=== PATIENT | male | born 1995 | race Caucasian/White ===

== ENCOUNTER 2017-05-28 14:35 | Emergency (ER) | payer SELFPAY ==
[2017-05-28 14:40] VITALS: BP 127/58
[2017-05-28] MEDS ORDERED: VALA1000 PO (15:40)
--- NOTE | 2017-05-28 15:40 | PHYS DOC ---
Adult General Chief Complaint Chief Complaint: rash HPI HPI Patient is a 21-year-old male who presents ambulatory to the emergency department with painful rash on his genital area. His has the same rash. It started yesterday. They were wondering if it might be an allergic reaction to a condom. It was a little bit tingly and itchy when it first started but now it is very painful. 's rash is painful as well. The patient has never had a rash like this before. Review of Systems Review of Systems Constitutional: Denies fever or chills [] Physical Exam Physical Exam Constitutional: Well developed, well nourished, no acute distress, non-toxic appearance. [] HENT: Normocephalic, atraumatic, nose normal. [] Eyes: conjunctiva normal, no discharge. [] Neck: Normal range of motion, no stridor. [] : Penis and testicles appear normal. Above the penis, over the pubic area, there are scattered red papules and some vesicles. The appearance could be consistent with contact dermatitis but it does appear herpetiform. It does not appear to the consistent with folliculitis. It is a fairly well-circumscribed area. Skin: Warm, dry, no erythema, no rash. [] Extremities: No tenderness, no cyanosis, no clubbing, ROM intact, no edema. [] Neurologic: Alert and oriented X 3, normal motor function,no focal deficits noted. [] Current Patient Data Lab Results Laboratory Tests Test 05/28/17 14:10 POC Urine HCG, Qualitative hcg negative EKG EKG [] Radiology/Procedures Radiology/Procedures [] Course & Med Decision Making Course & Med Decision Making Pertinent Labs and Imaging studies reviewed. (See chart for details) 21-year-old male presents with acute onset of painful genital rash. Pain is the primary symptom. It does not appear consistent with contact dermatitis because it is not itchy, it's painful. He does not appear to be cellulitis or folliculitis. I'm concerned about the appearance consistent with herpes. A herpes swab was done and sent to the lab. We will start the patient on antiviral therapy. See instructions for plan. [] Dragon Disclaimer Dragon Disclaimer This electronic medical record was generated, in whole or in part, using a voice recognition dictation system. Departure Departure: Impression: Primary Impression: Blister of genital area Additional Impression: Herpes genitalis Disposition: 01 HOME, SELF-CARE Condition: STABLE Patient Instructions: Genital Herpes Additional Instructions: As we discussed, the symptoms are concerning for herpes. We did a test today, and your doctor can call to check the results next week. We will start you on antiviral therapy in case it is herpes. Get that filled right away and get it started today. Follow-up with your doctor for recheck sometime this week. Scripts Valacyclovir Hcl (VALACYCLOVIR) 1,000 Mg Tablet 1000 MG PO BID for herpes for 10 Days, #20 TAB Prov: NAKITA READ MD 05/28/17 Problem Qualifiers NAKITA READ MD May 28, 2017 15:40
[2017-05-31 20:08] LABS: HERPES SIMPLEX TYPE 1 Positive (Negative); HERPES SIMPLEX TYPE 2 Negative (Negative)
== END 2017-05-28 16:00 | disposition home or self-care (01) ==
LOC: ER 14:35
DX: A60.02 Herpesviral infection of other male genital organs (principal); S30.8 Other superficial injuries of abdomen, lower back, pelvis and external genitals; X58.XXXA Exposure to other specified factors, initial encounter; Y93.89 Activity, other specified; Y92.89 Other specified places as the place of occurrence of the external cause; Y99.8 Other external cause status
CPT/HCPCS: 36415; 81025; 87529; 99283